=== PATIENT | female | born 1990 | race Two or more races ===

== ENCOUNTER → 2021-04-27 | Outpatient (CLI) | payer OTHER ==
--- NOTE | 2021-04-27 15:48 | REP ---
INDICATION: PREG, ANATOMY. COMPARISON: None. TECHNIQUE: Transabdominal scanning FINDINGS: Multiple ultrasonographic images of the gravid uterus shows a single living intrauterine gestation in the transverse head maternal left position. Doppler interrogation of the heart shows a heart rate of 150 beats per minute. The placenta is posterior and not low-lying. The cervix measures 3.6 cm in length and is closed. BPD: 5.4 cm 22 weeks 3 days HC: 20.5 cm 22 weeks 4 days AC: 17.0 cm 22 weeks 0 days FL: 3.7 cm 21 weeks 5 days The estimated weight is 464 g which is at the 57 percentile for a 21 week 5 day gestational age which was based on the patient's LMP rather than today's biometry. anatomical structures to be unremarkable are as follows: Urinary bladder, three-vessel umbilical cord, cord insertion, and extremities. The remainder of the anatomical screen was suboptimal. IMPRESSION: Single living intrauterine gestation as described above with an estimated gestational age of 22 weeks 1 day via composite criteria and an estimated date of delivery of 08/30/2021 by today's exam. No anomalies were detected, however, recommend a follow-up examination to optimally visualize those anatomical structures with the exception of the ones well seen today as described above. <Electronically signed by Enrique Yanez > 04/27/21 [id number]
== END ==
LOC: M RAD 13:28
PROVIDERS: ATTEND Advanced Practice Midwife
DX: Z34.82 Encounter for supervision of other normal pregnancy, second trimester (principal)

== ENCOUNTER 2021-08-09 18:51 | Outpatient (CLI) | payer OTHER ==
[~2021-08-09] VITALS: Ht 157.5 cm; Wt 81.0 kg
[2021-08-09 19:19] VITALS: BP 111/56
[2021-08-09] MEDS ORDERED: PYRI50TA40 PO (19:31)
[2021-08-09] MEDS ORDERED: UNIS25TA3 PO (19:31)
[2021-08-09] MEDS ORDERED: IRON65TA2 PO (19:31)
[2021-08-09] MEDS ORDERED: ZOFR4TAB16 PO (19:31)
[2021-08-09] MEDS ORDERED: ASCO500T PO (19:31)
[2021-08-09] MEDS ORDERED: PRENTAB9 PO (19:31)
== END 2021-08-09 20:45 | disposition home or self-care (01) ==
LOC: M LDO 18:51
PROVIDERS: ATTEND Obstetrics & Gynecology
DX: O26.893 Other specified pregnancy related conditions, third trimester (principal); R10.2 Pelvic and perineal pain; Z3A.26 26 weeks gestation of pregnancy; O36.8130 Decreased fetal movements, third trimester, not applicable or unspecified
CPT/HCPCS: 59025; G0378; G0463

== ENCOUNTER 2021-09-09 19:35 | Inpatient (IN) | payer OTHER ==
[~2021-09-09] VITALS: Ht 157.5 cm; Wt 85.8 kg
[~2021-09-09 19:35] MED LIST: ASCO500T PO; IRON65TA2 PO; PRENTAB9 PO; PYRI50TA40 PO; UNIS25TA3 PO; ZOFR4TAB16 PO
[2021-09-09 20:30] VITALS: BP 137/63
[2021-09-09 20:31] LABS: HEMATOCRIT 29.7 % (36.0-47.0); HEMOGLOBIN 9.3 g/dl (12.0-15.5); MEAN CORPUSCULAR HEMOGLOBIN 22.7 pg (27.0-33.0); MEAN CORPUSCULAR HGB CONC 31.3 g/dl (32.0-36.5); MEAN CORPUSCULAR VOLUME 72.4 fl (80.0-96.0); PLATELET COUNT, AUTOMATED 176 10^3/uL (150-450); WHITE BLOOD COUNT 9.9 10^3/uL (4.0-10.0)
[2021-09-09] MEDS ORDERED: LACTATED RINGER'S 1000 ML IV STA (21:01)
[2021-09-09] MEDS ORDERED: OXYTOCIN DRIP 30 UNITS in IV 1 EA IV PRN ×4 (21:05)
[2021-09-09] MEDS ORDERED: LR 1,000 ML IV SCH (21:05)
[2021-09-09] MEDS ORDERED: LIDOCAINE 1% MDV 20ML VIAL INFIL PRN (21:05)
[2021-09-09] MEDS ORDERED: miSOPROStol 50MCG 1/2 TABLET PO ONE (21:05)
[2021-09-09] MEDS ORDERED: OXYTOCIN INJ 10 UNITS/ML VIAL (J2590) IV PRN (21:05)
[2021-09-09] MEDS ORDERED: OXYTOCIN DRIP 30 UNITS in IV 1 EA IV SCH (21:05)
[2021-09-09] MEDS ORDERED: diphenhydrAMINE 25MG CAP PO ONE (21:35)
[2021-09-09 21:47] VITALS: BP 125/60
[2021-09-09] MEDS: LR 1,000 ML IV SCH (23:57)
[2021-09-10] VITALS (77 sets, daily range): BP systolic 84–157; BP diastolic 43–92
[2021-09-10] MEDS ORDERED: FENTANYL 2MCG/ML ROPIVACAINE 0.2% IN 0.9% NACL 100ML IVBAG As Ordered ONE (04:55)
[2021-09-10] MEDS: LR 1,000 ML IV SCH ×3 (05:05→15:47)
[2021-09-10] MEDS ORDERED: EPIDURAL/PCA KEYS XX PRN (06:00)
[2021-09-10] MEDS ORDERED: ONDANSETRON 4MG/2ML VIAL IV PRN (06:00)
[2021-09-10] MEDS ORDERED: LACTATED RINGER'S 1000 ML IV PRN (06:00)
[2021-09-10] MEDS ORDERED: EPIDURAL COMMENT XX SCH (06:00)
[2021-09-10] MEDS ORDERED: diphenhydrAMINE 50MG/ML VIAL (J1200) IV PRN (06:00)
[2021-09-10] MEDS ORDERED: REFRIGERATOR IV KEYS XX PRN (06:00)
[2021-09-10] MEDS ORDERED: NALOXONE INJ 0.4MG/1ML VIAL (J2310 PER 1MG) IV PRN (06:00)
[2021-09-10] MEDS ORDERED: ePHEDrine SULFATE 25 MG/5 ML(5MG/ML) SYRINGE IV PRN (06:00)
[2021-09-10] MEDS: FENTANYL/ROPIVACAINE/NACL BAG 100 ML EPIDURAL SCH ×3 (07:12→22:26)
[2021-09-10] MEDS ORDERED: REFLB XX ONE (13:43)
[2021-09-10] MEDS ORDERED: OXYTOCIN INJ 10 UNITS/ML VIAL (J2590) IV ONE (15:10)
[2021-09-10] MEDS ORDERED: HOME MED LIST COMPLETE! XX SCH (17:10)
[2021-09-10] MEDS ORDERED: LACTATED RINGER'S 1000 ML IV ONE (23:15)
[2021-09-10] MEDS ORDERED: AZITHROMYCIN INJ 500 MG, VIAL MATE ADAPTER 1 EACH in NS 250 ML IV ONE (23:15)
[2021-09-10] MEDS ORDERED: ACETAMINOPHEN 650 MG SUPP PR SCH (23:15)
[2021-09-10] MEDS ORDERED: METHYLERGONOVINE MALEATE 0.2 MG/ML VIAL (J2210) IM PRN (23:15)
[2021-09-10] MEDS ORDERED: OXYTOCIN DRIP 30 UNITS in IV 1 EA IV PRN ×4 (23:15)
[2021-09-10] MEDS ORDERED: BUPIVACAINE HCL 0.25% 10ML VIAL SC SCH (23:15)
[2021-09-10] MEDS ORDERED: ceFAZolin SOD 2 GM in IV 1 EA IV ONE (23:15)
[2021-09-10] MEDS ORDERED: BICITRA 30ML SOLN UDC PO ONE (23:15)
[2021-09-10] MEDS ORDERED: OXYTOCIN INJ 10 UNITS/ML VIAL (J2590) IV PRN (23:15)
[2021-09-10] MEDS ORDERED: LIDOCAINE 2% W/EPINEPHRINE 20ML VIAL **PRES FREE As Ordered ONE (23:24)
[2021-09-10] MEDS ORDERED: OXYTOCIN 30 UNITS IN 0.9% NaCl 500ML IV BAG (J2590) As Ordered ONE (23:28)
[2021-09-10] MEDS ORDERED: KETOROLAC 60MG 2ML VIAL As Ordered ONE (23:52)
[2021-09-10] MEDS ORDERED: ONDANSETRON 4MG/2ML VIAL As Ordered ONE (23:52)
[2021-09-10] MEDS ORDERED: OXYTOCIN INJ 10 UNITS/ML VIAL (J2590) As Ordered ONE (23:53)
[2021-09-11] VITALS (7 sets, daily range): BP systolic 115–134; BP diastolic 54–64
[2021-09-11] MEDS ORDERED: MORPHINE PRES-FREE INJ 10 MG/10 ML VIAL (J2274) As Ordered ONE (00:09)
[2021-09-11] MEDS ORDERED: ONDANSETRON 4MG/2ML VIAL IV PRN ×2 (00:16→00:45)
[2021-09-11] MEDS ORDERED: diphenhydrAMINE 50MG/ML VIAL (J1200) IV PRN (00:16)
[2021-09-11] MEDS ORDERED: METOCLOPRAMIDE INJ 10MG/2ML VIAL (J2765 PER 1) IV PRN (00:16)
[2021-09-11] MEDS ORDERED: NALOXONE INJ 0.4MG/1ML VIAL (J2310 PER 1MG) IV PRN ×2 (00:16)
[2021-09-11] MEDS ORDERED: NALBUPHINE HCL 10 MG/ML AMP (J2300) IV PRN ×2 (00:16→00:45)
[2021-09-11 00:18] LABS: CORD GAS ABE A -8.2; CORD GAS HCO3 A 18.2 MEQ/L; CORD GAS O2 SAT A 72.8 %; CORD GAS PCO2 A 40.5 mmHg; CORD GAS PH A 7.271 UNITS; CORD GAS PO2 A 34.7 mmHg; CORD GAS SBC A 17.5 MEQ/L; CORD GAS TCO2 A 19.5 MEQ/L
[2021-09-11 00:20] LABS: CORD GAS ABE V -8.5; CORD GAS HCO3 V 16.9 MEQ/L; CORD GAS O2 SAT V 84.9 %; CORD GAS PCO2 V 35.2 mmHg; CORD GAS PH V 7.3 UNITS; CORD GAS SBC V 17.5 MEQ/L
[2021-09-11] MEDS ORDERED: HYDROMORPHONE HCL 0.5 MG/ 0.5 ML SYRINGE (J1170 PER 1) IV PRN (00:45)
[2021-09-11] MEDS ORDERED: MEPERIDINE INJ 25 MG/ML VIAL (J2175) IV PRN (00:45)
[2021-09-11] MEDS ORDERED: oxyCODONE 5MG TAB PO PRN (00:45)
[2021-09-11] MEDS ORDERED: fentaNYL 100 MCG/2 ML INJECTION IV PRN (00:45)
[2021-09-11] MEDS ORDERED: OXYTOCIN DRIP 30 UNITS in IV 1 EA IV ONE (00:55)
[2021-09-11] MEDS ORDERED: RHOGAM 300 MCG (1500 IU) INJ (J2790) IM SCH (00:55)
[2021-09-11] MEDS ORDERED: OXYTOCIN DRIP 30 UNITS in IV 1 EA IV SCH (00:55)
[2021-09-11] MEDS ORDERED: LR 1,000 ML IV SCH (00:55)
[2021-09-11] MEDS ORDERED: MEASLES,MUMPS,RUBELLA VACCINE INJ (MMR-II) (90707) SC SCH (00:55)
[2021-09-11] MEDS ORDERED: ACETAMINOPHEN TAB 650MG DOSE (2X325MG) PO PRN (00:55)
[2021-09-11] MEDS ORDERED: METHYLERGONOVINE MALEATE 0.2 MG TAB PO PRN (00:55)
[2021-09-11] MEDS ORDERED: ANUSOL HC CREAM 30GM TOP PRN (00:55)
[2021-09-11] MEDS ORDERED: METHYLERGONOVINE MALEATE 0.2 MG/ML VIAL (J2210) IM PRN (00:55)
[2021-09-11] MEDS ORDERED: SIMETHICONE 80MG CHEW TAB PO PRN (00:55)
[2021-09-11] MEDS ORDERED: OXYTOCIN INJ 10 UNITS/ML VIAL (J2590) IV ONE (00:55)
[2021-09-11] MEDS ORDERED: PERCOCET 5MG/325MG TAB PO PRN (00:55)
[2021-09-11] MEDS ORDERED: MOM 30ML SUSPENSION UDC PO PRN (00:55)
[2021-09-11] MEDS ORDERED: HYDROMORPHONE HCL 0.5 MG/ 0.5 ML SYRINGE (J1170 PER 1) As Ordered ONE (01:15)
[2021-09-11] MEDS ORDERED: OXYTOCIN 30 UNITS IN 0.9% NaCl 500ML IV BAG (J2590) As Ordered ONE (01:19)
[2021-09-11] MEDS: LR 1,000 ML IV SCH ×4 (05:33→23:15)
[2021-09-11] MEDS: KETOROLAC 30 MG/ML 1ML VIAL IV SCH ×3 (05:34→18:34)
[2021-09-11] MEDS: PRENATAL VITAMINS CHEWABLE TABLET PO SCH (17:04)
[2021-09-12 02:00] VITALS: BP 109/59
[2021-09-12 05:55] VITALS: BP 115/57
[2021-09-12] MEDS: PERCOCET 5MG/325MG TAB PO PRN ×2 (06:22→10:17)
[2021-09-12] MEDS: LR 1,000 ML IV SCH (07:15)
[2021-09-12 08:09] LABS: HEMATOCRIT 22.5 % (36.0-47.0); MEAN CORPUSCULAR HEMOGLOBIN 22.2 pg (27.0-33.0); MEAN CORPUSCULAR HGB CONC 29.8 g/dl (32.0-36.5); MEAN CORPUSCULAR VOLUME 74.5 fl (80.0-96.0); PLATELET COUNT, AUTOMATED 135 10^3/uL (150-450); RED BLOOD COUNT 3.02 10^6/uL (4.00-5.40); WHITE BLOOD COUNT 13.1 10^3/uL (4.0-10.0)
[2021-09-12 08:13] LABS: HEMOGLOBIN 6.7 g/dl (12.0-15.5)
[2021-09-12] MEDS: PRENATAL VITAMINS CHEWABLE TABLET PO SCH (08:43)
[2021-09-12 10:00] VITALS: BP 137/80
[2021-09-12 14:00] VITALS: BP 136/72
[2021-09-12] MEDS: ACETAMINOPHEN 500 MG TAB PO PRN (15:34)
[2021-09-12 18:05] VITALS: BP 133/78
[2021-09-12] MEDS: IBUPROFEN 600MG TAB PO PRN (18:50)
[2021-09-12] MEDS: DOCUSATE SODIUM 100MG CAPSULE PO PRN ×2 (21:04→21:40)
[2021-09-12 22:00] VITALS: BP 121/65
[2021-09-13 02:00] VITALS: BP 129/70
[2021-09-13] MEDS: IBUPROFEN 600MG TAB PO PRN (04:30)
[2021-09-13 06:00] VITALS: BP 138/65
[2021-09-13 08:32] LABS: HEMATOCRIT 23.5 % (36.0-47.0); MEAN CORPUSCULAR HEMOGLOBIN 21.6 pg (27.0-33.0); MEAN CORPUSCULAR HGB CONC 29.4 g/dl (32.0-36.5); MEAN CORPUSCULAR VOLUME 73.4 fl (80.0-96.0); PLATELET COUNT, AUTOMATED 156 10^3/uL (150-450); WHITE BLOOD COUNT 10.5 10^3/uL (4.0-10.0)
[2021-09-13 08:34] LABS: HEMOGLOBIN 6.9 g/dl (12.0-15.5)
[2021-09-13] MEDS: PRENATAL VITAMINS CHEWABLE TABLET PO SCH (09:41)
[2021-09-13] MEDS: ACETAMINOPHEN 500 MG TAB PO PRN (09:42)
== END 2021-09-13 12:50 | disposition home or self-care (01) | DRG 773 ==
LOC: M LDI 19:35 → M OBS 09-11 02:15
PROVIDERS: ADMIT Obstetrics & Gynecology; ATTEND Obstetrics & Gynecology
PROC: 10D00Z1 Extraction of Products of Conception, Low, Open Approach (ICD-10-PCS; principal; 2021-09-10)
PROC: 3E033VJ Introduction of Other Hormone into Peripheral Vein, Percutaneous Approach (ICD-10-PCS; 2021-09-10)
PROC: 3E0DXGC Introduction of Other Therapeutic Substance into Mouth and Pharynx, External Approach (ICD-10-PCS; 2021-09-10)
DX: O48.0 Post-term pregnancy (principal); Z37.0 Single live birth; Z3A.41 41 weeks gestation of pregnancy; F41.9 Anxiety disorder, unspecified; O99.344 Other mental disorders complicating childbirth; O32.4XX0 Maternal care for high head at term, not applicable or unspecified; O62.0 Primary inadequate contractions; O77.0 Labor and delivery complicated by meconium in amniotic fluid; O32.3XX0 Maternal care for face, brow and chin presentation, not applicable or unspecified; Z79.899 Other long term (current) drug therapy

== ENCOUNTER → 2022-10-22 | Outpatient (REF) | LOC: M PLAIMG 09:57 | PROVIDERS: ATTEND Internal Medicine | DX: M19.071 Primary osteoarthritis, right ankle and foot (principal); M19.072 Primary osteoarthritis, left ankle and foot ==